=== PATIENT | female | born 1955 | race Caucasian/White ===

== ENCOUNTER 2018-03-22 18:57 | Emergency (ER) | payer BC ==
[~2018-03-22] VITALS: Ht 157.5 cm; Wt 82.0 kg
[2018-03-22 19:09] VITALS: BP 118/57; PULSE 74; RESP 18; TEMP 97.7; O2SAT 100
[2018-03-22] MEDS ORDERED: PHEN-556 PO (19:17)
[2018-03-22] MEDS ORDERED: CITA40TA4 PO (19:17)
[2018-03-22] MEDS ORDERED: ATEN50TA PO (19:17)
[2018-03-22] MEDS ORDERED: LISI-515 PO (19:17)
[2018-03-22] MEDS ORDERED: LEVO175T2 PO (19:17)
[2018-03-22] MEDS ORDERED: BIOT10TA PO (19:17)
[2018-03-22] MEDS ORDERED: ALLO100T PO (19:17)
--- NOTE | 2018-03-22 20:10 | PD ---
HPI Chief Complaint: Dizziness Time Seen by Provider: 19:56 Travel History International Travel<30 days: No Contact w/Intl Traveler<30days: No Traveled to known affect area: No History of Present Illness HPI The patient is a 63-year-old female that complains of lightheadedness when she was standing in a line waiting for restaurant beginning about 6 PM. She gradually fainted and slipped when she slumped to the ground she felt some vertigo. She still has some vertigo when she sits up now. She denies any chest pain or shortness of breath. The patient has not been drinking a lot of liquids today. She denies any vomiting but did have some nausea when she fainted. She has no nausea now. The patient does have a history of hypertension and is on atenolol and lisinopril. She has lost a fair amount of weight lately and her blood pressure may be coming down because of that. The patient is from [place] and has no local medical doctor. PFS Past Medical History Depression: Yes Cardiovascular Problems: Yes Diminished Hearing: No Gout: Yes Genitourinary: Yes (kidney stone) Hypertension: Yes Thyroid Disease: Yes Tetanus Vaccination: Never Vaccinated Influenza Vaccination: Yes ?: Not Social History Alcohol Use: No Tobacco Use: No Substance Use: No Allergies-Medications (Allergen,Severity, Reaction): Coded Allergies: No Known Allergies (Unverified , 03/22/18) Reported Meds & Prescriptions Reported Meds & Active Scripts Active Reported Biotin 10 Mg Tab 10 Mg PO DAILY Lisinopril 20 Mg Tab 20 Mg PO DAILY Citalopram (Citalopram Hydrobromide) 40 Mg Tab 40 Mg PO DAILY Atenolol 50 Mg Tab 50 Mg PO DAILY Allopurinol 100 Mg Tab 100 Mg PO BID Lomaira (Phentermine HCl) 8 Mg Tab 37.5 Mg PO DAILY Levothyroxine (Levothyroxine Sodium) 175 Mcg Tab 175 Mcg PO DAILY Review of Systems Except as stated in HPI: all other systems reviewed are Neg Physical Exam Narrative GENERAL: The patient is alert, oriented 3 in no apparent distress. Her vital signs are normal except for blood pressure 118/57. She appears minimally dehydrated. SKIN: Focused skin assessment warm/dry. HEAD: Atraumatic. Normocephalic. Neither recognize no pierce sign is present. EYES: Pupils equal and round. No scleral icterus. No injection or drainage. ENT: No nasal bleeding or discharge. Mucous membranes pink and moist. NECK: Trachea midline. No JVD. CARDIOVASCULAR: Regular rate and rhythm. No murmur appreciated. RESPIRATORY: No accessory muscle use. Clear to auscultation. Breath sounds equal bilaterally. GASTROINTESTINAL: Abdomen soft, non-tender, nondistended. Hepatic and splenic margins not palpable. No guarding or rebound is present. MUSCULOSKELETAL: No obvious deformities. No clubbing. No cyanosis. No edema. NEUROLOGICAL: Awake and alert. No obvious cranial nerve deficits. Motor grossly within normal limits. Normal speech. PSYCHIATRIC: Appropriate mood and affect; insight and judgment normal. Data Data Last Documented VS Vital Signs Date Time Temp Pulse Resp B/P (MAP) Pulse Ox O2 Delivery O2 Flow Rate FiO2 03/22/18 20:26 64 16 118/57 (77) 98 Room Air 03/22/18 19:09 97.7 Orders Orders Electrocardiogram (03/22/18 20:07) Complete Blood Count With Diff (03/22/18 20:07) Comprehensive Metabolic Panel (03/22/18 20:07) Urinalysis - C+S If Indicated (03/22/18 20:07) Sodium Chlor 0.9% 1000 Ml Inj (Ns 1000 M (03/22/18 20:15) Troponin I (03/22/18 20:07) Labs Laboratory Tests Test 03/22/18 20:15 03/22/18 20:30 White Blood Count 8.9 TH/MM3 Red Blood Count 4.36 MIL/MM3 Hemoglobin 11.9 GM/DL Hematocrit 36.4 % Mean Corpuscular Volume 83.6 FL Mean Corpuscular Hemoglobin 27.4 PG Mean Corpuscular Hemoglobin Concent 32.7 % Red Cell Distribution Width 15.1 % Platelet Count 210 TH/MM3 Mean Platelet Volume 9.8 FL Neutrophils (%) (Auto) 67.7 % Lymphocytes (%) (Auto) 19.5 % Monocytes (%) (Auto) 5.9 % Eosinophils (%) (Auto) 2.1 % Basophils (%) (Auto) 4.8 % Neutrophils # (Auto) 6.1 TH/MM3 Lymphocytes # (Auto) 1.7 TH/MM3 Monocytes # (Auto) 0.5 TH/MM3 Eosinophils # (Auto) 0.2 TH/MM3 Basophils # (Auto) 0.4 TH/MM3 CBC Comment DIFF FINAL Differential Comment Blood Urea Nitrogen 19 MG/DL Creatinine 0.96 MG/DL Random Glucose 91 MG/DL Total Protein 6.1 GM/DL Albumin 3.1 GM/DL Calcium Level 8.3 MG/DL Alkaline Phosphatase 70 U/L Aspartate Amino Transf (AST/SGOT) 13 U/L Alanine Aminotransferase (ALT/SGPT) 16 U/L Total Bilirubin 0.4 MG/DL Sodium Level 140 MEQ/L Potassium Level 3.8 MEQ/L Chloride Level 109 MEQ/L Carbon Dioxide Level 24.1 MEQ/L Anion Gap 7 MEQ/L Estimat Glomerular Filtration Rate 59 ML/MIN Troponin I LESS THAN 0.02 NG/ML Urine Collection Type VOIDED Urine Color YELLOW Urine Turbidity CLEAR Urine pH 5.5 Urine Specific [place] 1.020 Urine Protein NEG mg/dL Urine Glucose (UA) NEG mg/dL Urine Ketones TRACE mg/dL Urine Occult Blood NEG Urine Nitrite NEG Urine Bilirubin NEG Urine Urobilinogen 0.2 MG/DL Urine Leukocyte Esterase TRACE Urine RBC 0-3 /hpf Urine WBC 0-2 /hpf Urine Squamous Epithelial Cells 0-5 /hpf Urine Bacteria RARE /hpf Microscopic Urinalysis Comment CULT NOT INDICATED Urine Collection Time 2030 [facility] Medical Decision Making Medical Screen Exam Complete: Yes Emergency Medical Condition: Yes Medical Record Reviewed: Yes Interpretation(s) The urine shows trace ketones, trace leukocyte esterase and rare bacteria and culture is not indicated. The complete metabolic profile shows a BUN of 19, GFR 59, total protein of 6.1 with albumin of 3.1 and calcium 8.3 but is otherwise unremarkable. The troponin I is normal. The EKG shows sinus rhythm with rate of [address] elevation or depression. Differential Diagnosis Syncope from standing and poor blood return from the legs, cardiac syncope- unlikely, hypo-/hyperglycemia, electrolyte disorder, dehydration, anemia Narrative Course Blood work shows no evidence of anemia in the history is that of her standing on one place for a prolonged time. This did not allow the milking action of the valves in the veins to return the blood to the heart. The patient is to move around and "milk" the blood from her legs by using muscle action to avoid syncope. Should she get dizzy again she should get her head down and get her legs above her heart. She may have had slight dehydration and has had a liter of fluid here as well as p.o. Gatorade. She has lost weight and her blood pressure pills may be too strong for now, she will follow up with her physicians in [place] to reevaluate this. Diagnosis Primary Impression: Syncopal spell Additional Instructions: As we discussed, follow-up with your physicians in [place], they may want to reevaluate/modify your blood pressure medicines. Plenty of liquids and elevate your legs above your heart if you get dizzy. Med/Other Pt SpecificInfo: No Change to Meds Disposition: 01 DISCHARGE HOME Condition: Stable Noe Chaney MD Mar 22, 2018 20:10
[2018-03-22] MEDS ORDERED: SODIUM CHLOR 0.9% 1000 ML INJ 1,000 ML IV SCH (20:15)
[2018-03-22 20:25] LABS: AUTOMATED NEUTROPHIL # 6.1 TH/MM3 (1.8-7.7); BASOPHIL # 0.4 TH/MM3 (0-0.2); BASOPHIL % 4.8 % (0.0-2.0); EOSINOPHIL # 0.2 TH/MM3 (0-0.4); EOSINOPHIL % 2.1 % (0.0-4.0); HEMATOCRIT 36.4 % (35.0-46.0); HEMOGLOBIN 11.9 GM/DL (11.6-15.3); LYMPH % 19.5 % (9.0-44.0); LYMPHOCYTE # 1.7 TH/MM3 (1.0-4.8); MEAN CELL VOLUME 83.6 FL (80.0-100.0); MEAN CORPUSCULAR HEMOGLOBIN 27.4 PG (27.0-34.0); MEAN CORPUSCULAR HGB CONC 32.7 % (32.0-36.0); MEAN PLATELET VOLUME 9.8 FL (7.0-11.0); MONO % 5.9 % (0.0-8.0); MONOCYTE # 0.5 TH/MM3 (0-0.9); NEUT % 67.7 % (16.0-70.0); PLATELET COUNT 210 TH/MM3 (150-450); RED BLOOD COUNT 4.36 MIL/MM3 (4.00-5.30); RED CELL DISTRIBUTION WIDTH 15.1 % (11.6-17.2); WHITE BLOOD COUNT 8.9 TH/MM3 (4.0-11.0)
[2018-03-22 20:26] VITALS: BP 118/57; PULSE 64; RESP 16; O2SAT 98
[2018-03-22 20:35] LABS: CHLORIDE 109 MEQ/L (98-107); SODIUM (NA) 140 MEQ/L (136-145)
[2018-03-22 20:36] LABS: BILIRUBIN, URINE NEG (NEG); BLOOD, URINE NEG (NEG); GLUCOSE,URINE NEG (NEG); KETONE, URINE TRACE mg/dL (NEG); NITRITE,URINE NEG (NEG); PH, URINE 5.5 (5.0-8.5); URINE COLOR YELLOW (YELLW/STRAW); URINE LEUKOCYTE ESTERASE TRACE (NEG)
[2018-03-22 20:38] LABS: CALCIUM 8.3 MG/DL (8.5-10.1)
[2018-03-22 20:39] LABS: ALBUMIN 3.1 GM/DL (3.4-5.0); BICARBONATE 24.1 MEQ/L (21.0-32.0); BLOOD UREA NITROGEN 19 MG/DL (7-18); GLUCOSE,RANDOM 91 MG/DL (74-106)
[2018-03-22 20:42] LABS: ALT (GPT) 16 U/L (10-53); AST (GOT) 13 U/L (15-37); CREATININE 0.96 MG/DL (0.50-1.00); GLOMERULAR FILTRATION RATE 59 ML/MIN (>89)
[2018-03-22 20:43] LABS: TOTAL BILIRUBIN ADULT 0.4 MG/DL (0.2-1.0); TOTAL PROTEIN 6.1 GM/DL (6.4-8.2)
[2018-03-22 20:45] LABS: ALKALINE PHOSPHATASE 70 U/L (45-117)
[2018-03-22 20:47] LABS: TROPONIN I LESS THAN 0.02 NG/ML (0.02-0.05)
[2018-03-22 20:54] LABS: BACTERIA, URINE RARE /hpf; RBC, URINE 0-3 /hpf (0-3); SQUAMOUS EPITHELIAL CELL URINE 0-5 /hpf (0-5); WBC, URINE 0-2 /hpf (0-5)
[2018-03-22 22:28] VITALS: BP 103/55
--- NOTE | 2018-03-23 07:27 | EKG ---
Date Performed: 03/22/2018 Time Performed: 20:23:10 PTAGE: 63 years EKG: Sinus rhythm WITH FIRST DEGREE AV BLOCK LOW QRS VOLTAGE IN PRECORDIAL LEADS PROLONGED QT INTERVAL ABNORMAL ECG NO PREVIOUS TRACING DOCTOR: Carloz Cain Interpretating Date/Time 03/23/2018 07:25:26
== END 2018-03-22 22:51 | disposition home or self-care (01) ==
LOC: PHEFT 18:57
DX: R55 Syncope and collapse (principal); R94.31 Abnormal electrocardiogram [ECG] [EKG]; R42 Dizziness and giddiness; R11.0 Nausea; I10 Essential (primary) hypertension; F32.9 Major depressive disorder, single episode, unspecified; Z79.899 Other long term (current) drug therapy
CPT/HCPCS: 80053; 81001; 84484; 85025; 93005; 96360; 96361; 99284; J7030